=== PATIENT | female | born 1960 | race Caucasian/White ===

== ENCOUNTER 2021-04-24 19:51 | Emergency (ER) | payer OTHER ==
[2021-04-24] MEDS ORDERED: Acetaminophen/oxyCODONE 325-5 MG Tab PO ONE (19:52)
[2021-04-24] MEDS ORDERED: Ondansetron 4 MG Tab.DIS PO ONE (19:52)
[2021-04-24 22:06] LABS: ANION GAP 12.4 mEq/L (7-13); CHLORIDE,CL 101 mmol/L (98-107); SODIUM,NA 141 mmol/L (136-145)
[2021-04-24] MEDS ORDERED: Iopamidol 612 MG/ML 100 ML Bottle IVPUSH ONE (23:31)
[2021-04-24] MEDS ORDERED: Ondansetron 4 MG/2 ML SDV IVPUSH ONE (23:44)
[2021-04-24] MEDS ORDERED: Famotidine 20 MG/2 ML SDV IVPUSH ONE (23:46)
[2021-04-24] MEDS ORDERED: fentaNYL 100 MCG/2 ML SDV IVPUSH ONE (23:47)
--- NOTE | 2021-04-25 01:14 | CT ---
PROCEDURE INFORMATION: Exam: CT Abdomen And Pelvis With Contrast Exam date and time: 04/24/2021 11:40 PM Age: 60 years old Clinical indication: Abdominal pain; Localized; Right upper quadrant (ruq); Prior surgery; Surgery date: 6+ months; Surgery type: Cholecystectomy, hysterectomy TECHNIQUE: Imaging protocol: Computed tomography of the abdomen and pelvis with contrast. Radiation optimization: All CT scans at this facility use at least one of these dose optimization techniques: automated exposure control; mA and/or kV adjustment per patient size (includes targeted exams where dose is matched to clinical indication); or iterative reconstruction. Contrast material: ISOVUE 300; Contrast volume: 75 ml; Contrast route: INTRAVENOUS (IV); COMPARISON: No relevant prior studies available. FINDINGS: Lungs: Mild bibasilar atelectasis. Liver: Normal. No mass. Gallbladder and bile ducts: Status post cholecystectomy. Moderate intra and extrahepatic ductal dilatation. The common duct measures up to 20 mm. Cause not identified, but a noncalcified stone or potentially distal lesion could be the cause. Pancreas: Normal. No ductal dilation. Spleen: Probable splenules. Adrenal glands: Normal. No mass. Kidneys and ureters: Probable cyst in the right kidney. No hydronephrosis. Stomach and bowel: Mild scattered diverticulosis of the colon. Appendix: No evidence of appendicitis. Intraperitoneal space: Unremarkable. No free air. No significant fluid collection. Vasculature: Unremarkable. No abdominal aortic aneurysm. Lymph nodes: Unremarkable. No enlarged lymph nodes. Urinary bladder: Unremarkable as visualized. Reproductive: Status post hysterectomy. Bones/joints: Unremarkable. No acute fracture. Soft tissues: Unremarkable. IMPRESSION: Moderate intra and extrahepatic biliary ductal dilatation may be due to a distal stone or lesion. If further imaging is clinically indicated, MRCP is suggested. COMMENTS: Consistent with the [employer]'s Incidental Findings Committee white paper (J Am Andrew Radiol 2018): Any incidental renal lesion less than 1 cm or classified as too small to characterize, or any incidental cystic renal lesion characterized as simple-appearing, is likely benign. No follow-up imaging is recommended for these lesions per consensus recommendations based on imaging criteria.
[2021-04-25] MEDS ORDERED: Ondansetron 4 MG Tab.DIS ONE (01:20)
[2021-04-25] MEDS ORDERED: Acetaminophen/oxyCODONE 325-5 MG Tab ONE (01:20)
--- NOTE | 2021-04-25 01:28 | EDM.PDOC ---
ED HPI GENERAL MEDICAL PROBLEM - General Chief Complaint: Abdominal Pain Stated Complaint: RIGHT SIDE PAIN RIBS AND STOMACH. Time Seen by Provider: 04/24/21 22:45 Source of Information: Reports: Patient, RN History Limitations: Reports: No Limitations - History of Present Illness INITIAL COMMENTS - FREE TEXT/NARRATIVE: ED with c/o RUG/ epigastric pain. Feels similar to Gall bladder pain, radiates to back around shoulder blade area. no nausea or vomiting. Appetite poor this baljit. Rates pain 6/10, Colicky type. No chest pain Tried tums last night and helped but not today. No fever or chills. Last BM this am. no hx of constipation, no lower abdominal pain Eloisa approximately 20 years prior. Right Upper Abdominal Pain Score (Numeric/FACES): 8 - Related Data Allergies Allergy/AdvReac Type Severity Reaction Status Date / Time latex Allergy Rash Verified 02/18/18 07:03 nickel Allergy Rash Verified 02/18/18 07:03 Home Meds: Home Meds Chlorthalidone 25 mg PO DAILY 02/18/18 [History] DULoxetine HCl [Duloxetine HCl] 60 mg PO DAILY 02/18/18 [History] Ibuprofen 400 mg PO BID PRN 02/18/18 [History] Past Medical History HEENT History: Reports: Impaired Vision Musculoskeletal History: Reports: Fibromyalgia Psychiatric History: Reports: Depression - Past Surgical History GI Surgical History: Reports: Cholecystectomy Female Surgical History: Reports: Hysterectomy Social & Family History - Tobacco Use Tobacco Use Status *Q: Never Tobacco User Second Hand Smoke Exposure: No - Recreational Drug Use Recreational Drug Use: No ED ROS GENERAL - Review of Systems Review Of Systems: Comprehensive ROS is negative, except as noted in HPI. ED EXAM, GI/ABD - Physical Exam Exam: See Below Exam Limited By: No Limitations General Appearance: Alert, Mild Distress Eyes: Bilateral: EOMI Ears: Normal External Exam Nose: Normal Inspection, Normal Mucosa Throat/Mouth: Normal Inspection, Normal Voice Head: Atraumatic, Normocephalic Neck: Normal Inspection Respiratory/Chest: No Respiratory Distress, Lungs Clear, Normal Breath Sounds Cardiovascular: Regular Rate, Rhythm GI/Abdominal Exam: Normal Bowel Sounds, Soft, Tender (RUQ). No: Distended, Guarding, Rigid, Rebound Extremities: Normal Inspection, Normal Range of Motion Neurological: Alert, Oriented, Normal Cognition Psychiatric: Normal Affect, Normal Mood Skin Exam: Warm, Dry, Intact, Normal Color Course - Vital Signs Last Recorded V/S: Last Vital Signs Temp 97.8 F 04/24/21 21:04 Pulse 59 L 04/25/21 01:26 Resp 18 04/24/21 21:04 BP 135/75 04/25/21 01:26 Pulse Ox 96 04/25/21 01:26 - Orders/Labs/Meds Labs: Laboratory Tests 04/24/21 04/24/21 04/24/21 Range/Units 21:40 21:40 21:40 WBC 10.3 H (5.0-10.0) 10^3/uL RBC 4.72 (4.2-5.4) 10^6/uL Hgb 14.5 (12.0-16.0) g/dL Hct 42.9 (37.0-47.0) % MCV 90.9 (80-100) fL MCH 30.7 (27.0-34.0) pg MCHC 33.8 (33.0-35.0) g/dL Plt Count 261 (150-450) 10^3/uL Neut % (Auto) 75.2 (42.2-75.2) % Lymph % (Auto) 17.5 L (20.5-50.1) % [place] % (Auto) 6.0 (2-8) % Eos % (Auto) 1.2 (1.0-3.0) % Baso % (Auto) 0.1 (0.0-1.0) % Sodium 141 (136-145) mmol/L Potassium 4.4 (3.5-5.1) mmol/L Chloride 101 (98-107) mmol/L Carbon Dioxide 32 (21-32) mmol/L Anion Gap 12.4 (7-13) mEq/L BUN 21 H (7-18) mg/dL Creatinine 0.94 (0.55-1.02) mg/dL Est Cr Clr Drug Dosing 58.09 mL/min Estimated GFR (MDRD) > 60 BUN/Creatinine Ratio 22.3 (No establ ref range) Glucose 173 H (70-99) mg/dL Calcium 11.4 H (8.5-10.1) mg/dL Total Bilirubin 1.3 H (0.2-1.0) mg/dL AST 552 H (15-37) U/L ALT 467 H (14-59) U/L Alkaline Phosphatase 215 H (46-116) U/L Troponin I High Sens < 4 (<=51) pg/mL Total Protein 7.3 (6.4-8.2) g/dL Albumin 3.8 (3.4-5.0) g/dL Globulin 3.5 Albumin/Globulin Ratio 1.1 Amylase 436 H (25-115) U/L Lipase > 2250 H (73-393) U/L Meds: Medications Discontinued Medications Generic Name Dose Route Start Last Admin Trade Name Freq PRN Reason Stop Dose Admin Famotidine 20 mg 04/24/21 23:46 04/25/21 00:11 Famotidine 20 Mg/2 Ml Sdv IVPUSH 04/24/21 23:47 20 mg ONETIME ONE Administration Fentanyl 50 mcg 04/24/21 23:47 04/25/21 00:08 Fentanyl 100 Mcg/2 Ml Sdv IVPUSH 04/24/21 23:48 50 mcg ONETIME ONE Administration Iopamidol 100 ml 04/24/21 23:31 04/25/21 00:06 Iopamidol 612 Mg/Ml 100 Ml Bottle IVPUSH 04/24/21 23:32 75 ml ONETIME ONE Administration Ondansetron HCl 4 mg 04/24/21 23:44 04/25/21 00:06 Ondansetron 4 Mg/2 Ml Sdv IVPUSH 04/24/21 23:45 4 mg ONETIME ONE Administration Ondansetron HCl Confirm 04/25/21 01:20 Ondansetron 4 Mg Tab.Dis Administered 04/25/21 01:21 Dose 8 mg .ROUTE .STK-MED ONE Oxycodone/Acetaminophen Confirm 04/25/21 01:20 Acetaminophen/Oxycodone 325-5 Mg Tab Administered 04/25/21 01:21 Dose 2 tab .ROUTE .STK-MED ONE Departure - Departure Time of Disposition: 01:18 Disposition: Home, Self-Care 01 Condition: Fair Clinical Impression: Common bile duct dilation - Discharge Information *PRESCRIPTION DRUG MONITORING PROGRAM REVIEWED*: No *COPY OF PRESCRIPTION DRUG MONITORING REPORT IN PATIENT TIAGO: No Instructions: Abdominal Pain, Adult, [id number], Endoscopic Retrograde Cholangiopancreatogram Forms: ED Department Discharge Additional Instructions: light bland diet clinic follow up in am percocet 5/325 one every 6 hours as needed for pain zofran odt 4mg one every 6 hours as needed for nausea urgent follow up fever, severe pain repeated vomiting Sepsis Event Note (ED) - Evaluation Sepsis Screening Result: No Definite Risk - Focused Exam Vital Signs: Vital Signs Temp Pulse Resp BP Pulse Ox 04/25/21 01:26 59 L 135/75 96 04/24/21 21:04 97.8 F 56 L 18 122/71 99
== END 2021-04-25 01:33 | disposition home or self-care (01) ==
LOC: DL.ED 19:51
DX: K83.8 Other specified diseases of biliary tract (principal); Z91.040 Latex allergy status; Z91.048 Other nonmedicinal substance allergy status
CPT/HCPCS: 36415; 74177; 80053; 82150; 83690; 84484; 85025; 96374; 96375; 99283; 99284-25; A9270-GY; J2405; J3010; J3490; Q9967

== ENCOUNTER 2022-07-26 05:35 | Day surgery (SDC) | payer OTHER ==
[~2022-07-26 05:35] MED LIST: Dextrose 5%-0.45% NaCl 1,000 ML IV SCH; Sodium Chloride 0.9% 10 ML Syringe FLUSH PRN; Sodium Chloride 0.9% 10 ML Syringe FLUSH SCH
[2022-07-26] MEDS ORDERED: Midazolam 1 MG/ML 2 ML SDV IV ONE ×5 (05:36→06:47)
[2022-07-26] MEDS ORDERED: fentaNYL 100 MCG/2 ML SDV IV ONE ×3 (05:36→06:35)
[2022-07-26] MEDS ORDERED: fentaNYL 100 MCG/2 ML SDV ONE (06:18)
[2022-07-26] MEDS ORDERED: Midazolam 1 MG/ML 2 ML SDV ONE (06:18)
== END 2022-07-26 08:23 | disposition home or self-care (01) ==
LOC: DL.ENDO 05:35
PROVIDERS: ATTEND Internal Medicine Gastroenterology
DX: Z12.11 Encounter for screening for malignant neoplasm of colon (principal); K57.30 Diverticulosis of large intestine without perforation or abscess without bleeding; I10 Essential (primary) hypertension; E78.5 Hyperlipidemia, unspecified; M79.7 Fibromyalgia; E66.9 Obesity, unspecified; H91.93 Unspecified hearing loss, bilateral; R73.01 Impaired fasting glucose; E83.52 Hypercalcemia
CPT/HCPCS: J2250; J3010; J7042